=== PATIENT | male | born 1950 | race Caucasian/White ===

== ENCOUNTER 2018-02-17 02:34 | Emergency (ER) | payer MEDICARE, SELFPAY ==
[~2018-02-17] VITALS: Ht 167.6 cm; Wt 71.9 kg
[2018-02-17 02:38] VITALS: BP 123/78
== END 2018-02-17 04:17 | disposition home or self-care (01) ==
LOC: ED 03:55
DX: F10.10 Alcohol abuse, uncomplicated (principal)
CPT/HCPCS: 99281

== ENCOUNTER 2019-03-24 00:59 | Emergency (ER) | payer MEDICARE, MEDICAID ==
[~2019-03-24] VITALS: Ht 167.6 cm; Wt 72.0 kg
[2019-03-24 01:01] VITALS: BP 130/82
--- NOTE | 2019-03-24 01:26 | NUR ---
Assist RN: patient discharged with prescription and instruction. verbalized understanding.
== END 2019-03-24 01:33 | disposition home or self-care (01) ==
LOC: ED 01:27
DX: B86 Scabies (principal)
CPT/HCPCS: 99282; 99283

== ENCOUNTER 2019-08-22 10:06 | Emergency (ER) | payer MEDICARE, MEDICAID ==
[~2019-08-22] VITALS: Ht 170.2 cm; Wt 77.0 kg
--- NOTE | 2019-08-22 10:24 | NUR ---
PT PLACED ON PULSE OX, CALL LIGHT WITHIN REACH, WARM BLANKET PROVIDED. AWAITING CT.
[2019-08-22] MEDS ORDERED: THIAMINE 100MG TABLET ONE (10:30)
[2019-08-22] MEDS ORDERED: THIAMINE 100MG TABLET PO ONE (10:30)
[2019-08-22] MEDS ORDERED: PANT20TA3 PO (10:34)
--- NOTE | 2019-08-22 10:34 | NUR ---
OXYGEN PLACED AT 3LITERS VIA NC FOR DESAT WHILE SLEEPING TO 83%. PULSE OX NOW RANGING 90-97%. CALL LIGHT WITHIN REACH.
--- NOTE | 2019-08-22 10:38 | NUR ---
PT CONGESTED WITH SOMETIME PRODUCTIVE COUGH YIELDING THICK YELLOW SPUTUM. ERP NOTIFIED AND ADD ON LAB AND XR ORDERED.
[2019-08-22 11:15] LABS: BASOPHILS # (AUTO) 0.21 x10^3/uL (0-0.1); BASOPHILS % (AUTO) 3 % (0-1); EOSINOPHILS # (AUTO) 1.04 x10^3/uL (0-0.4); EOSINOPHILS % (AUTO) 16 % (1-7); LYMPHOCYTES # (AUTO) 1.21 x10^3/uL (1-3.4); LYMPHOCYTES % (AUTO) 19 % (22-44); MD NO; MEAN CORPUSCULAR HEMOGLOBIN 33.5 pg (27.5-34.5); MEAN CORPUSCULAR HGB CONC 33.1 g/dL (33.2-36.2); MEAN CORPUSCULAR VOLUME 101.3 fL (81-97); MEAN PLATELET VOLUME 6.5 fL (7.4-10.4); MONOCYTES # (AUTO) 0.71 x10^3/uL (0.2-0.8); MONOCYTES % (AUTO) 11 % (2-9); NEUTROPHILS # (AUTO) 3.33 x10^3/uL (1.8-6.8); NEUTROPHILS % (AUTO) 51 % (42-75); PLATELET COUNT 422 x10^3/uL (130-400); RED BLOOD COUNT 4.27 x10^6/uL (4.38-5.82); RED CELL DISTRIBUTION WIDTH 15.4 % (9.4-14.8)
[2019-08-22 11:21] LABS: ANION GAP 11 mmol/L (5-15); CALCIUM 8.2 mg/dL (8.5-10.1); CHLORIDE 101 mmol/L (98-107); CREATININE 0.73 mg/dL (0.7-1.3)
[2019-08-22 13:13] VITALS: BP 138/82
--- NOTE | 2019-08-22 13:14 | NUR ---
PT AMBULATED WITH STEADY GAIT USING HIS WALKER. PT DISCHARGED HOME. PT PLEASANT AND COOPERATIVE.
[2019-09-25] MEDS ORDERED: AMOX-291 PO (10:55)
[2019-09-25] MEDS ORDERED: CLOP75TA PO (10:55)
[2019-09-25] MEDS ORDERED: ATOR40TA78 PO (10:55)
[2019-09-25] MEDS ORDERED: NICO-487 TD (10:55)
[2019-09-25] MEDS ORDERED: ACID1TAB7 PO (10:55)
[2019-09-25] MEDS ORDERED: CARV3.1212 PO (10:55)
[2019-09-25] MEDS ORDERED: DOXY100C2 PO (10:55)
== END 2019-08-22 13:17 | disposition home or self-care (01) ==
LOC: ED 10:19
DX: S00.01XA Abrasion of scalp, initial encounter (principal); F10.220 Alcohol dependence with intoxication, uncomplicated; L72.3 Sebaceous cyst; G31.9 Degenerative disease of nervous system, unspecified; Z72.9 Problem related to lifestyle, unspecified; W19.XXXA Unspecified fall, initial encounter; Y93.89 Activity, other specified; Y92.89 Other specified places as the place of occurrence of the external cause; Y99.8 Other external cause status
CPT/HCPCS: 36415; 70450; 71045; 80048; 85025; 99284

== ENCOUNTER 2019-10-17 09:06 | Emergency (ER) | payer MEDICAID, MEDICARE ==
[~2019-10-17] VITALS: Ht 170.2 cm; Wt 77.0 kg
[~2019-10-17 09:06] MED LIST: ACID1TAB7 PO; AMOX-291 PO; ATOR40TA78 PO; CARV3.1212 PO; CLOP75TA PO; DOXY100C2 PO; NICO-487 TD; PANT20TA3 PO
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
--- NOTE | 2019-10-17 09:34 | NUR ---
Pt RA sats decrease to 80% while at rest. Placed on 2 liters via nasal cannula to maintain >94%.
--- NOTE | 2019-10-17 10:46 | NUR ---
CT head complete. Pt remains awake and alert.
--- NOTE | 2019-10-17 11:33 | NUR ---
Ambulatory w/ assist to restroom to void. POC MTF, meal tray ordered.
--- NOTE | 2019-10-17 11:56 | NUR ---
RECEIVED REPORT FROM STEWART MCQUEEN. ASSUMING CARE AT THIS TIME.
--- NOTE | 2019-10-17 12:04 | NUR ---
DIET TRAY DELIVERED TO PT. PT ALERT AND SPEAKING IN FULL SENTENCES. PT READING BOOK.
[2019-10-17 12:28] VITALS: BP 111/72
== END 2019-10-17 12:59 | disposition home or self-care (01) ==
LOC: ED 12:51
DX: S00.03XA Contusion of scalp, initial encounter (principal); F10.220 Alcohol dependence with intoxication, uncomplicated; R51 Headache; J44.9 Chronic obstructive pulmonary disease, unspecified; W18.00XA Striking against unspecified object with subsequent fall, initial encounter; Y93.89 Activity, other specified; Y92.89 Other specified places as the place of occurrence of the external cause; Y99.8 Other external cause status; Y90.9 Presence of alcohol in blood, level not specified
CPT/HCPCS: 70450; 99284

== ENCOUNTER 2019-10-17 21:44 | Emergency (ER) | payer MEDICARE ==
[~2019-10-17] VITALS: Ht 177.8 cm; Wt 76.0 kg
[2019-10-17] MEDS ORDERED: LIDOCAINE 2%, 20ML INFIL ONE (22:00)
--- NOTE | 2019-10-17 22:12 | NUR ---
Pt to CT.
[2019-10-17] MEDS ORDERED: NEOSPORIN OINT. PKT 1 PACKET ONE (22:38)
[2019-10-17 23:18] VITALS: BP 125/76
--- NOTE | 2019-10-17 23:20 | NUR ---
Pt sleeping in [facility] no distress noted, rails up and locked, call light within reach.
--- NOTE | 2019-10-18 00:04 | NUR ---
Pt up getting dressed, dc instructions given to pt. Pt verbalized understanding.
--- NOTE | 2019-10-18 00:27 | NUR ---
pt d/c with d/c summary. all questions answered. pt ambulates to registation desk with walker and person belongings for d/c home. pt denies any other needs pertaining to this visit and verbalizes understanding of f/u instructions for staple removal.
== END 2019-10-18 00:31 | disposition home or self-care (01) ==
LOC: ED 10-18 00:10
DX: S06.0X0A Concussion without loss of consciousness, initial encounter (principal); S22.011A Stable burst fracture of first thoracic vertebra, initial encounter for closed fracture; S01.01XA Laceration without foreign body of scalp, initial encounter; F10.229 Alcohol dependence with intoxication, unspecified; Z72.9 Problem related to lifestyle, unspecified; J44.9 Chronic obstructive pulmonary disease, unspecified; F17.200 Nicotine dependence, unspecified, uncomplicated; Y90.9 Presence of alcohol in blood, level not specified
CPT/HCPCS: 12032; 70450; 72125; 99284

== ENCOUNTER 2019-10-18 21:32 | Emergency (ER) | payer MEDICARE ==
[~2019-10-18] VITALS: Ht 172.7 cm; Wt 70.0 kg
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
--- NOTE | 2019-10-18 23:07 | NUR ---
REPORT RECEIVED FROM RICHAR VIGIL. PLAN OF CARE DISCUSSED. PATIENT DESAT TO 80% WITH GOOD PLETH, O2 TURNED UP TO 8L, PATIENT BACK UP TO 95%. PATIENT SLEEPING, RESPIRATIONS EVEN AND UNLABORED.
--- NOTE | 2019-10-18 23:11 | NUR ---
Report to Brenda rn Patient intermittently desaturating to mid 80's on 2l nc, rate increased gradually to 6l with no improvement. Placed on Oxymask at 8L and roused- with improvement to 96%
--- NOTE | 2019-10-19 00:03 | NUR ---
task rn: pt resting on gurney, eyes closed. respirations even and unlabored. bedrails up x2. oximask in place to maintain O2 >90%.
--- NOTE | 2019-10-19 00:27 | NUR ---
O2 TITRATED DOWN TO 6L VIA OXYMASK TO MAINTAIN SPO2 GREATER THAN 90%. PATIENT SLEEPING SPO2 AT 97%, RESPIRATIONS EVEN AND UNLABORED.
--- NOTE | 2019-10-19 00:44 | NUR ---
TITRATED O2 DOWN TO 3L VIA OXYMASK, PATIENT MAINTAINING SPO2 0F 98%
--- NOTE | 2019-10-19 01:12 | NUR ---
ATTEMPTED TO WAKE PATIENT UP, PATIENT HAS INCOMPREHENSIBLE SPEECH AT THIS TIME. LEFT JUICE, WATER AND CRACKERS AT BESIDE TABLE, PATIENT WAS ABLE TO SAY "I HEAR YOU, THANK YOU".
--- NOTE | 2019-10-19 02:21 | NUR ---
PATIENT SLEEPING, RESPIRATIONS EVEN AND UNLABORED, VSS, NAD.
[2019-10-19 03:11] VITALS: BP 115/69
--- NOTE | 2019-10-19 03:42 | NUR ---
PATIENT SLEEPING, RESPIRATIONS EVEN AND UNLABORED, VSS, NAD. MAINTAINING 97% ON 3L OXYMASK
--- NOTE | 2019-10-19 04:00 | NUR ---
ROAD TEST COMPLETED. PATIENT AMBULATORY WITH STEADY GAIT TO RESTROOM.
--- NOTE | 2019-10-19 04:25 | NUR ---
Patient/Caregiver given discharge instructions and they have confirmed that they understand the instructions. Patient ambulatory with steady gait.
== END 2019-10-19 04:27 | disposition home or self-care (01) ==
LOC: ED 22:51
DX: S06.0X0A Concussion without loss of consciousness, initial encounter (principal); F10.120 Alcohol abuse with intoxication, uncomplicated; Z72.9 Problem related to lifestyle, unspecified; J44.9 Chronic obstructive pulmonary disease, unspecified; F17.200 Nicotine dependence, unspecified, uncomplicated; Y90.9 Presence of alcohol in blood, level not specified
CPT/HCPCS: 99283

== ENCOUNTER 2019-11-02 21:30 | Emergency (ER) | payer MEDICARE ==
[~2019-11-02] VITALS: Ht 170.2 cm; Wt 78.0 kg
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
--- NOTE | 2019-11-02 22:25 | NUR ---
PATIENT TO CT
[2019-11-02 22:27] LABS: BASOPHILS # (AUTO) 0.13 x10^3/uL (0-0.1); BASOPHILS % (AUTO) 2 % (0-1); EOSINOPHILS # (AUTO) 0.97 x10^3/uL (0-0.4); EOSINOPHILS % (AUTO) 16 % (1-7); LYMPHOCYTES # (AUTO) 1.27 x10^3/uL (1-3.4); LYMPHOCYTES % (AUTO) 21 % (22-44); MD NO; MEAN CORPUSCULAR HEMOGLOBIN 34.1 pg (27.5-34.5); MEAN CORPUSCULAR HGB CONC 33.7 g/dL (33.2-36.2); MEAN CORPUSCULAR VOLUME 101.1 fL (81-97); MEAN PLATELET VOLUME 7.2 fL (7.4-10.4); MONOCYTES # (AUTO) 0.79 x10^3/uL (0.2-0.8); MONOCYTES % (AUTO) 13 % (2-9); NEUTROPHILS % (AUTO) 49 % (42-75); PLATELET COUNT 197 x10^3/uL (130-400); RED BLOOD COUNT 3.96 x10^6/uL (4.38-5.82); RED CELL DISTRIBUTION WIDTH 15.8 % (9.4-14.8)
[2019-11-02 22:37] LABS: ALBUMIN 2.9 g/dL (3.4-5.0); ANION GAP 8 mmol/L (5-15); CALCIUM 8.1 mg/dL (8.5-10.1); CHLORIDE 104 mmol/L (98-107)
--- NOTE | 2019-11-02 23:21 | NUR ---
PATIENT RESTING, RESPIRATIONS EVEN AND UNLABORED. VSS AT THIS TIME, CALL LIGHT IN REACH
[2019-11-02] MEDS ORDERED: THIAMINE 100MG TABLET PO ONE (23:30)
[2019-11-03] MEDS ORDERED: THIAMINE 100MG TABLET ONE (00:42)
[2019-11-03 01:10] VITALS: BP 133/80
--- NOTE | 2019-11-03 01:11 | NUR ---
PATIENT AMBULATORY WITH STEADY GAIT TO DISCHARGE. COMMUNICATED UNDERSTANDING OF DICAHRGE INSTRUCTIONS
== END 2019-11-03 01:30 | disposition home or self-care (01) ==
LOC: ED 11-03 01:27
DX: S06.0X0A Concussion without loss of consciousness, initial encounter (principal); J44.9 Chronic obstructive pulmonary disease, unspecified; F10.220 Alcohol dependence with intoxication, uncomplicated; F17.200 Nicotine dependence, unspecified, uncomplicated; Z72.9 Problem related to lifestyle, unspecified; Z59.0 Homelessness; X58.XXXA Exposure to other specified factors, initial encounter; Y93.89 Activity, other specified; Y92.89 Other specified places as the place of occurrence of the external cause; Y99.8 Other external cause status; Y90.9 Presence of alcohol in blood, level not specified
CPT/HCPCS: 36415; 70450; 71045; 72125; 80048; 80307; 82040; 85025; 99285

== ENCOUNTER 2019-11-22 14:27 | Emergency (ER) | payer MEDICARE, MEDICAID ==
[~2019-11-22] VITALS: Ht 167.6 cm; Wt 69.8 kg
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
--- NOTE | 2019-11-22 15:27 | NUR ---
PT SLEEPING RESP EVEN AND UNLABORED
--- NOTE | 2019-11-22 16:42 | NUR ---
PT SLEEPING, RESP EVEN AND UNLABORED
--- NOTE | 2019-11-22 18:17 | NUR ---
PT UP TO BATHROOM, GAIT UNSTEADY WITH SBA. BACK TO BED. MEAL AT BS,
--- NOTE | 2019-11-22 18:59 | NUR ---
REPORT FROM SHELLI MCQUEEN ASSUMING CARE OF PT AT THIS TIME. ROSEMARY
--- NOTE | 2019-11-22 20:00 | NUR ---
PT AMB TO RESTROOM WITH STEADY GAIT NO ASSIST AT THIS TIME. PT STS READY TO LEAVE MD TO BE UPDATED
[2019-11-22 20:29] VITALS: BP 124/75
== END 2019-11-22 20:32 | disposition home or self-care (01) ==
LOC: ED 20:00
DX: F10.120 Alcohol abuse with intoxication, uncomplicated (principal); J44.9 Chronic obstructive pulmonary disease, unspecified; Y90.0 Blood alcohol level of less than 20 mg/100 ml
CPT/HCPCS: 99283

== ENCOUNTER 2019-12-03 21:45 | Emergency (ER) | payer MEDICAID, MEDICARE ==
[~2019-12-03] VITALS: Ht 170.2 cm; Wt 68.0 kg
[2019-12-03 21:48] VITALS: BP 135/71
--- NOTE | 2019-12-03 23:53 | NUR ---
Still unable to ambulate.
--- NOTE | 2019-12-04 01:09 | NUR ---
Attempted breathalyzer, pt unable. Pt still unable to ambulate at this time.
--- NOTE | 2019-12-04 03:25 | NUR ---
incentive spirometer given to patient
--- NOTE | 2019-12-04 03:25 | NUR ---
Pt verbalized understanding, ambulated with walker to dc desk
== END 2019-12-04 03:27 | disposition home or self-care (01) ==
LOC: ED 12-04 02:26
DX: S22.32XA Fracture of one rib, left side, initial encounter for closed fracture (principal); S09.90XA Unspecified injury of head, initial encounter; R51 Headache; M54.2 Cervicalgia; F10.120 Alcohol abuse with intoxication, uncomplicated; J44.9 Chronic obstructive pulmonary disease, unspecified; Z99.81 Dependence on supplemental oxygen; Z72.9 Problem related to lifestyle, unspecified; W01.0XXA Fall on same level from slipping, tripping and stumbling without subsequent striking against object, initial encounter; Y93.89 Activity, other specified; Y92.89 Other specified places as the place of occurrence of the external cause; Y99.8 Other external cause status
CPT/HCPCS: 70450; 72125; 93005; 99285

== ENCOUNTER 2019-12-07 00:38 | Emergency (ER) | payer MEDICARE, MEDICAID ==
[~2019-12-07] VITALS: Ht 172.7 cm; Wt 8.2 kg
--- NOTE | 2019-12-07 02:46 | NUR ---
PT RESTING WITH EYES CLOSED. MONITOR IN PLACE.
--- NOTE | 2019-12-07 04:21 | NUR ---
PT ASSIST WITH GETTING DRESSED FOR DC. PT UNSTEADY WITH GAIT, SWAYING WHILE GETTING DRESSED. PT WALKED APPROX 6 FEET AND ALMOST FELL HEAD FIRST INTO THE WALL. PT ASSISTED BACK TO BED. WILL DELAY DC AND REASSESS IN ONE HOUR. NOTIFIED.
[2019-12-07 05:09] VITALS: BP 121/70
--- NOTE | 2019-12-07 05:10 | NUR ---
PT RESTING COMFORTABLY WITH EYES CLOSED. NO NEEDS AT THIS TIME.
== END 2019-12-07 04:16 | disposition home or self-care (01) ==
LOC: ED 02:23
DX: S00.03XA Contusion of scalp, initial encounter (principal); S20.212A Contusion of left front wall of thorax, initial encounter; S60.011A Contusion of right thumb without damage to nail, initial encounter; M54.2 Cervicalgia; J44.9 Chronic obstructive pulmonary disease, unspecified; F17.200 Nicotine dependence, unspecified, uncomplicated; Z99.81 Dependence on supplemental oxygen; W18.30XA Fall on same level, unspecified, initial encounter; Y93.89 Activity, other specified; Y92.481 Parking lot as the place of occurrence of the external cause; Y99.8 Other external cause status
CPT/HCPCS: 70450; 71045; 93005; 99284

== ENCOUNTER 2019-12-07 21:09 | Emergency (ER) | payer MEDICARE, MEDICAID ==
[~2019-12-07] VITALS: Ht 170.2 cm; Wt 65.0 kg
--- NOTE | 2019-12-07 23:39 | NUR ---
pt sleeping, no complaints at this time.
--- NOTE | 2019-12-08 01:25 | NUR ---
pt sleeping, no complaints at this time.
--- NOTE | 2019-12-08 03:02 | NUR ---
pt sleeping, no complaints at this time.
--- NOTE | 2019-12-08 06:15 | NUR ---
PT AA AND O TIMES 4 AT THIS TIME, AMBULATE WITH HIS WHEELED WALKER TO RESTROOM WITH STEADY GAIT, PT PROVIDED WITH CAB VOUCHER TO RESIDENTIAL FOR SAFE DISCHARGE AT THIS TIME.
[2019-12-08 06:20] VITALS: BP 138/78
== END 2019-12-08 06:54 | disposition home or self-care (01) ==
LOC: ED 12-08 02:45
DX: F10.220 Alcohol dependence with intoxication, uncomplicated (principal); I10 Essential (primary) hypertension; Y90.9 Presence of alcohol in blood, level not specified
CPT/HCPCS: 99283

== ENCOUNTER 2019-12-08 10:39 | Emergency (ER) | payer MEDICARE, MEDICAID ==
[~2019-12-08] VITALS: Ht 170.2 cm; Wt 70.0 kg
[2019-12-08] MEDS ORDERED: MAGNESIUM SULFATE 1 GM, THIAMINE 100 MG, FOLIC ACID 1 MG, MVI ADULT 10 ML in SODIUM CHL... IV ONE (11:00)
[2019-12-08] MEDS ORDERED: SODIUM CHLORIDE FLUSH 10ML SYR IVF ONE (11:00)
[2019-12-08 11:15] LABS: BASOPHILS # (AUTO) 0.02 x10^3/uL (0-0.1); BASOPHILS % (AUTO) 0 % (0-1); EOSINOPHILS # (AUTO) 0.45 x10^3/uL (0-0.4); EOSINOPHILS % (AUTO) 7 % (1-7); LYMPHOCYTES # (AUTO) 0.45 x10^3/uL (1-3.4); LYMPHOCYTES % (AUTO) 7 % (22-44); MD NO; MEAN CORPUSCULAR HEMOGLOBIN 34.2 pg (27.5-34.5); MEAN CORPUSCULAR HGB CONC 33.4 g/dL (33.2-36.2); MEAN CORPUSCULAR VOLUME 102.4 fL (81-97); MEAN PLATELET VOLUME 7.8 fL (7.4-10.4); MONOCYTES # (AUTO) 0.43 x10^3/uL (0.2-0.8); MONOCYTES % (AUTO) 7 % (2-9); NEUTROPHILS # (AUTO) 4.95 x10^3/uL (1.8-6.8); NEUTROPHILS % (AUTO) 79 % (42-75); PLATELET COUNT 146 x10^3/uL (130-400); RED BLOOD COUNT 3.87 x10^6/uL (4.38-5.82); RED CELL DISTRIBUTION WIDTH 16.4 % (9.4-14.8)
[2019-12-08 11:22] LABS: INTERNATIONAL NORMALIZED RATIO 0.9 (0.93-1.1); PROTHROMBIN TIME 9.5 Seconds (9.6-11.5)
--- NOTE | 2019-12-08 11:22 | NUR ---
PT TO IMAGING
[2019-12-08 11:26] LABS: ALANINE AMINOTRANSFERASE 94 U/L (12-78); ALBUMIN 2.8 g/dL (3.4-5.0); ANION GAP 8 mmol/L (5-15); CALCIUM 8.1 mg/dL (8.5-10.1); CHLORIDE 110 mmol/L (98-107); CREATININE 0.85 mg/dL (0.7-1.3)
[2019-12-08 11:28] LABS: ALKALINE PHOSPHATASE 95 U/L (45-117); BILIRUBIN,TOTAL 0.7 mg/dL (0.2-1.0); TOTAL PROTEIN 6.6 g/dL (6.4-8.2)
[2019-12-08] MEDS ORDERED: HEPARIN 25,000 UNITS/250ML PMX 250 ML ONE (11:37)
--- NOTE | 2019-12-08 12:00 | NUR ---
PT MEDICATED TO MAR, PT LAYING IN BED, EYES CLOSED, RESPIRATIONS EVEN AND UNLABORED, SNORING HEARD.
--- NOTE | 2019-12-08 13:13 | NUR ---
PT IN BED, EYES CLOSED, RESPIRATIONS EVEN AND UNLABORED, NO SIGNS OF DISTRESS.
--- NOTE | 2019-12-08 14:30 | NUR ---
PT AROUSED VERBALLY AND INSTRUCTED TO AMUBLATE TO BATHROOM, PT VOIDED, STEADY ON FEET.
--- NOTE | 2019-12-08 15:14 | NUR ---
PT IN BED, EYES CLOSED, RESPIRATIONS EVEN AND UNLABORED, NO SIGNS OF DISTRESS. WILL CONTINUE TO MONITOR.
--- NOTE | 2019-12-08 16:03 | NUR ---
PT CONDITION UNCHANGED.
[2019-12-08 16:06] VITALS: BP 128/86
== END 2019-12-08 16:22 | disposition home or self-care (01) ==
LOC: ED 12:18
DX: S09.90XA Unspecified injury of head, initial encounter (principal); F10.129 Alcohol abuse with intoxication, unspecified; M79.644 Pain in right finger(s); R07.81 Pleurodynia; J44.9 Chronic obstructive pulmonary disease, unspecified; I10 Essential (primary) hypertension; F17.200 Nicotine dependence, unspecified, uncomplicated; W01.0XXA Fall on same level from slipping, tripping and stumbling without subsequent striking against object, initial encounter; Y93.89 Activity, other specified; Y92.89 Other specified places as the place of occurrence of the external cause; Y99.8 Other external cause status; Y90.9 Presence of alcohol in blood, level not specified
CPT/HCPCS: 36415; 70450; 71250; 72125; 80053; 83735; 85025; 85610; 96365; 96366; 99285; J3411; J3475; J7030

== ENCOUNTER 2019-12-10 20:54 | Emergency (ER) | payer MEDICAID, MEDICARE ==
[~2019-12-10] VITALS: Ht 170.2 cm; Wt 81.8 kg
[2019-12-10 20:59] VITALS: BP 124/71
--- NOTE | 2019-12-10 22:40 | NUR ---
PT SLEEPING SOUNDLY WITH NO COMPLAINTS
--- NOTE | 2019-12-11 00:21 | NUR ---
PT SLEEPING SOUNDLY WITH NO COMPLAINTS
== END 2019-12-11 02:01 | disposition home or self-care (01) ==
LOC: ED 12-11 00:43
DX: F10.120 Alcohol abuse with intoxication, uncomplicated (principal); Z72.9 Problem related to lifestyle, unspecified; J44.9 Chronic obstructive pulmonary disease, unspecified; I10 Essential (primary) hypertension; F17.200 Nicotine dependence, unspecified, uncomplicated; Z99.81 Dependence on supplemental oxygen; Y90.9 Presence of alcohol in blood, level not specified
CPT/HCPCS: 99283

== ENCOUNTER 2020-01-13 13:00 | Emergency (ER) | payer MEDICARE, MEDICAID ==
[~2020-01-13] VITALS: Ht 167.6 cm; Wt 75.0 kg
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
[2020-01-13 13:36] LABS: BASOPHILS # (AUTO) 0.03 x10^3/uL (0-0.1); BASOPHILS % (AUTO) 0 % (0-1); EOSINOPHILS # (AUTO) 1.04 x10^3/uL (0-0.4); EOSINOPHILS % (AUTO) 12 % (1-7); LYMPHOCYTES # (AUTO) 1.01 x10^3/uL (1-3.4); LYMPHOCYTES % (AUTO) 12 % (22-44); MD NO; MEAN CORPUSCULAR HEMOGLOBIN 34.4 pg (27.5-34.5); MEAN CORPUSCULAR HGB CONC 33.5 g/dL (33.2-36.2); MEAN CORPUSCULAR VOLUME 102.9 fL (81-97); MEAN PLATELET VOLUME 7.1 fL (7.4-10.4); MONOCYTES # (AUTO) 0.56 x10^3/uL (0.2-0.8); MONOCYTES % (AUTO) 7 % (2-9); NEUTROPHILS # (AUTO) 5.95 x10^3/uL (1.8-6.8); NEUTROPHILS % (AUTO) 69 % (42-75); PLATELET COUNT 235 x10^3/uL (130-400); RED BLOOD COUNT 3.82 x10^6/uL (4.38-5.82); RED CELL DISTRIBUTION WIDTH 14.2 % (9.4-14.8)
[2020-01-13 13:46] LABS: ANION GAP 9 mmol/L (5-15); CHLORIDE 109 mmol/L (98-107)
[2020-01-13] MEDS ORDERED: POTASSIUM CHLORIDE 20 MEQ TAB.ER.PRT PO ONE (14:00)
[2020-01-13] MEDS ORDERED: POTASSIUM CHLORIDE 20 MEQ TAB.ER.PRT ONE (14:04)
--- NOTE | 2020-01-13 14:06 | NUR ---
BREAK RN: ASSIST PATIENT WITH REPOSITIONING. PT VERBALIZED NO OTHER NEEDS AT THIS TIME
[2020-01-13 15:19] VITALS: BP 108/78
--- NOTE | 2020-01-13 15:19 | NUR ---
patient got up and tested on feet. walks well. patient amublated to bathroom, did good. he is aox4. he is ready to go. relayed this to md. patient got himself dressed and states hes feeling better
--- NOTE | 2020-01-13 15:23 | NUR ---
DISCHARGE TEACHING REVIEWED, SHOWS UNDERSTANDING.
== END 2020-01-13 15:25 | disposition home or self-care (01) ==
LOC: ED 14:42
DX: S09.90XA Unspecified injury of head, initial encounter (principal); R41.82 Altered mental status, unspecified; F10.129 Alcohol abuse with intoxication, unspecified; I10 Essential (primary) hypertension; J44.9 Chronic obstructive pulmonary disease, unspecified; Y90.9 Presence of alcohol in blood, level not specified; W18.30XA Fall on same level, unspecified, initial encounter; Y93.89 Activity, other specified; Y92.410 Unspecified street and highway as the place of occurrence of the external cause; Y99.8 Other external cause status
CPT/HCPCS: 36415; 70450; 80048; 80307; 83735; 85025; 99284

== ENCOUNTER 2020-03-09 02:11 | Emergency (ER) | payer MEDICARE, MEDICAID ==
[~2020-03-09] VITALS: Ht 170.2 cm; Wt 80.0 kg
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
--- NOTE | 2020-03-09 02:48 | NUR ---
PT DE SATTING WHEN SLEEPING. PT PLACED ON 2 L O2 AND SATS NOW 96. PT WAS SLEEPING AND BED RAILS RAISED FOR SAFETY. CALL LIGHT IN REACH
[2020-03-09 03:48] VITALS: BP 112/73
--- NOTE | 2020-03-09 03:49 | NUR ---
PT SLEEPING. EVEN RISE AND FALL OF CHEST OBSERVED. VSS. PT WAKES TO VOICE BUT IS UNABLE TO AMBULATE. CALL LIGHT IN REACH
--- NOTE | 2020-03-09 03:57 | NUR ---
PT WOKE UP AND SAID HE WAS READY TO GO. PT ABLE TO AMBULATE DOWN HART. PT AMBULATED TO DISCHARGE DESK WITHOUT ASSISTANCE. AWARE.
== END 2020-03-09 04:00 | disposition home or self-care (01) ==
LOC: ED 02:58
DX: F10.220 Alcohol dependence with intoxication, uncomplicated (principal); Z72.9 Problem related to lifestyle, unspecified; M25.562 Pain in left knee; M25.561 Pain in right knee; J44.9 Chronic obstructive pulmonary disease, unspecified; I10 Essential (primary) hypertension; Y04.0XXA Assault by unarmed brawl or fight, initial encounter; Y93.89 Activity, other specified; Y92.89 Other specified places as the place of occurrence of the external cause; Y99.8 Other external cause status; Y90.9 Presence of alcohol in blood, level not specified
CPT/HCPCS: 99281

== ENCOUNTER 2020-09-30 11:17 | Emergency (ER) | payer MEDICARE, MEDICAID ==
[~2020-09-30] VITALS: Ht 167.6 cm; Wt 82.8 kg
[~2020-09-30 11:17] MED LIST changes: -NICO-487 TD; +NICO-587 TD; -PANT20TA3 PO; +PANT20TA4 PO
--- NOTE | 2020-09-30 11:37 | NUR ---
Pt changed into gown and placed on bedside monitor with call light in reach. Auditory expiratory wheezes with crackles noted without use of stethescope while at bedside.
--- NOTE | 2020-09-30 12:00 | NUR ---
Radiology at bedside for PCXR and nursery laborer waiting outside for draw at this time.
[2020-09-30 12:09] LABS: MEAN CORPUSCULAR HEMOGLOBIN 31.8 pg (27.5-34.5); MEAN CORPUSCULAR HGB CONC 34.7 g/dL (33.2-36.2); MEAN PLATELET VOLUME 6.7 fL (7.4-10.4); PLATELET COUNT 319 x10^3/uL (130-400); RED BLOOD COUNT 4.17 x10^6/uL (4.38-5.82); RED CELL DISTRIBUTION WIDTH 14.5 % (9.4-14.8)
--- NOTE | 2020-09-30 12:19 | NUR ---
Note evie in EDM - 09/30/20 at 1220 by SUNDAY NPPB tx completed with RA SpO2 increased to 95%. IV bolus continues to infuse well and warm blanket provided.
[2020-09-30 12:25] LABS: ALANINE AMINOTRANSFERASE 36 U/L (12-78); ALBUMIN 3.7 g/dL (3.4-5.0); ANION GAP 10 mmol/L (5-15); CALCIUM 8.4 mg/dL (8.5-10.1); CHLORIDE 95 mmol/L (98-107); CREATININE 1.14 mg/dL (0.7-1.3)
[2020-09-30 12:29] LABS: ALKALINE PHOSPHATASE 65 U/L (45-117); BILIRUBIN,TOTAL 0.3 mg/dL (0.2-1.0); TOTAL PROTEIN 7.2 g/dL (6.4-8.2); TROPONIN I < 0.015 ng/mL (0.000-0.045)
--- NOTE | 2020-09-30 12:44 | NUR ---
Pt taken off monitor and assisted to restroom at this time. RN standing outside of restroom door to assist pt back to bed as soon as he is ready.
[2020-09-30 13:04] LABS: MD YES
[2020-09-30 13:05] LABS: <PLATELET ESTIMATE> ADEQUATE; BAND#(MANUAL) 0.09 x10^3/uL; BANDS%(MANUAL) 1 % (0-7); BASOS#(MANUAL) 0.26 x10^3/uL (0-0.1); BASOS% (MANUAL) 3 % (0-1); EOS#(MANUAL) 2.21 x10^3/uL (0.0-0.4); EOS% (MANUAL) 26 % (1-7); LYMPH#(MANUAL) 1.28 x10^3/uL (1-3.4); LYMPHS% (MANUAL) 15 % (22-44); MONOS% (MANUAL) 7 % (2-9); SEG#(MANUAL) 4.08 x10^3/uL (1.8-6.8); SEGS% (MANUAL) 48 % (42-75)
[2020-09-30 13:07] LABS: <PLT MORPHOLOGY> NORMAL PLT MORPH
[2020-09-30 13:08] LABS: <RBC MORPHOLOGY> NORMAL
--- NOTE | 2020-09-30 13:10 | NUR ---
Pt up for recheck by MD at this time. All results posted and reviewed by RN.
[2020-09-30] MEDS ORDERED: ALBUTEROL/IPRATROPIUM 2.5MG/0.5MG, 3 ML ONE (13:44)
--- NOTE | 2020-09-30 13:52 | NUR ---
Pt given PO meds as ordered then started on NPPB Tx as ordered. Instructions given on how to self-sdminister with proper return demonstration given.
[2020-09-30] MEDS ORDERED: ALBUTEROL SULFATE 2.5 MG/3 ML NPPB ONE (14:00)
--- NOTE | 2020-09-30 14:08 | NUR ---
NPPB tx completed with bilat posterior lung sounds with decreased crackles and minimal, short expiratory wheeze in bases only. RA SpO2 holding at 92-94% at this time. Pt up for MD recheck and aware of wait for MD to come speak with him about results and plan of care.
--- NOTE | 2020-09-30 14:58 | NUR ---
Pt found standing up next to bed with RA SpO2 down to 88%. Placed back on O2 at 2L/min NC at this time. Awaiting reassessment by MD. Report given to RICHAR Jack and care transferred.
--- NOTE | 2020-09-30 15:09 | NUR ---
Report from RICHAR العلي. [facility].
[2020-09-30 15:44] VITALS: BP 131/69
== END 2020-09-30 16:06 | disposition home or self-care (01) ==
LOC: ED 12:07
DX: J44.1 Chronic obstructive pulmonary disease with (acute) exacerbation (principal); F10.220 Alcohol dependence with intoxication, uncomplicated; Z76.0 Encounter for issue of repeat prescription; I10 Essential (primary) hypertension; Y90.0 Blood alcohol level of less than 20 mg/100 ml
CPT/HCPCS: 36415; 71045; 80053; 80320; 83880; 84484; 85025; 93005; 94640; 99285; J7512; J7613; G0480